=== PATIENT | female | born 1990 | race Caucasian/White ===

== ENCOUNTER → 2016-11-11 | Outpatient (CLI) | payer BC ==
[2016-11-11 13:15] LABS: CHLORIDE,CL 109 mmol/L (98-110); SODIUM,NA 142 mmol/L (136-146)
== END ==
LOC: MW.CHFP 11:27
PROVIDERS: ATTEND Student in an Organized Health Care Education/Training Program
DX: Z00.00 Encounter for general adult medical examination without abnormal findings (principal)
CPT/HCPCS: 36415; 80053; 80061; 84443; 85027

== ENCOUNTER → 2017-01-06 | Outpatient (CLI) | payer BC | LOC: MW.CHOBGYN 10:31 | PROVIDERS: ATTEND Nurse Practitioner Women's Health | DX: N93.9 Abnormal uterine and vaginal bleeding, unspecified (principal) | CPT/HCPCS: 36415; 81025; 84443; 85025 ==

== ENCOUNTER → 2017-01-07 | Outpatient (CLI) | payer BC ==
--- NOTE | 2017-01-08 10:16 | US ---
EXAMINATION: Transvaginal and transabdominal pelvic ultrasound HISTORY: Bleeding COMPARISON: None TECHNIQUE: Grayscale, spectral Doppler and color Doppler images obtained transvaginally and transabd ominally. FINDINGS: The uterus. Normal in size, contour, and echogenicity without a focal uterine mass. The en dometrial stripe thickness measures 9 mm. No significant free pelvic fluid. The right ovary is normal in size, contour, and echogenicity demonstrating normal color and spectral Doppler flow. The left ovary is not well characterized. No adnexal masses identified. IMPRESSION: 1. The left ovary is not well characterized. Otherwise grossly unremarkable pelvic ultrasound.
== END ==
LOC: MW.US 15:25
PROVIDERS: ATTEND Nurse Practitioner Women's Health
DX: N93.8 Other specified abnormal uterine and vaginal bleeding (principal)
CPT/HCPCS: 76830; 76830-26

== ENCOUNTER 2018-02-10 10:04 | Day surgery (SDC) | payer SELFPAY, BC ==
[~2018-02-10 10:04] MED LIST: Bupivacaine 0.25% 10 ML SDV ONE; Bupivacaine 0.25%/EPINEPHrine 1:200,000 10 ML SDV INJECT ONE; Lactated Ringers 1,000 ML IV SCH; Lidocaine 2% with EPINEPHrine 1:100,000 20 ML MDV ONE; Ondansetron 4 MG Tab.DIS PO PRN; Ondansetron 4 MG/2 ML SDV IVPUSH PRN; ceFAZolin 2 GM in Premix Bag 1 BAG IV ONE; diphenhydrAMINE 25 MG Cap PO PRN
[2018-02-10] MEDS ORDERED: fentaNYL 100 MCG/2 ML SDV IVPUSH PRN (10:29)
[2018-02-10] MEDS ORDERED: Scopolamine 1.5 MG Transdermal Patch TRDERM PRN (10:29)
[2018-02-10] MEDS ORDERED: Acetaminophen 1,000 MG in Premix Bag 1 BAG IV SCH (10:30)
--- NOTE | 2018-02-10 10:43 | PCM.PREANE ---
Preanesthetic Assessment - Anesthesia/Transfusion/Family Hx Anesthesia History: Prior Anesthesia Without Reaction Family History of Anesthesia Reaction: No Transfusion History: No Prior Transfusion(s) Intubation History: Unknown - Review of Systems General: No Symptoms Pulmonary: No Symptoms Cardiovascular: No Symptoms Gastrointestinal: No Symptoms Neurological: No Symptoms Other: Reports: None - Physical Assessment Height: 1.52 m Weight: 73.028 kg ASA Class: 2 Mental Status: Alert & Oriented x3 Airway Class: Mallampati = 2 Dentition: Reports: Normal Dentition Thyro-Mental Finger Breadths: 3 Mouth Opening Finger Breadths: 3 ROM/Head Extension: Full Lungs: Clear to Auscultation, Normal Respiratory Effort Cardiovascular: Regular Rate, Regular Rhythm - Lab Values: Laboratory Last Values Urine HCG, Qual NEGATIVE (NEGATIVE) 02/10/18 10:05 - Allergies Allergies/Adverse Reactions: Allergies Allergy/AdvReac Type Severity Reaction Status Date / Time No Known Allergies Allergy Verified 02/05/18 09:26 - Blood Blood Available: No - Anesthesia Plan Pre-Op Medication Ordered: None - Acknowledgements Anesthesia Type Planned: General Anesthesia Pt an Appropriate Candidate for the Planned Anesthesia: Yes Alternatives and Risks of Anesthesia Discussed w Pt/Guardian: Yes Pt/Guardian Understands and Agrees with Anesthesia Plan: Yes PreAnesthesia Questionnaire HEENT History: Reports: None Cardiovascular History: Reports: None Respiratory History: Reports: None Gastrointestinal History: Reports: None Genitourinary History: Reports: None 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: , Spontaneous Musculoskeletal History: Reports: None Neurological History: Reports: None Psychiatric History: Reports: None Endocrine/Metabolic History: Reports: Obesity/BMI 30+ Hematologic History: Reports: Anemia Immunologic History: Reports: None Oncologic (Cancer) History: Reports: None Dermatologic History: Reports: None - Infectious Disease History Infectious Disease History: Reports: Chicken Pox - Past Surgical History Head Surgeries/Procedures: Reports: None HEENT Surgical History: Reports: None Cardiovascular Surgical History: Reports: None Respiratory Surgical History: Reports: None GI Surgical History: Reports: None Female Surgical History: Reports: Section, D&C Other Female Surgeries/Procedures: c/section x3 Endocrine Surgical History: Reports: None Neurological Surgical History: Reports: None Musculoskeletal Surgical History: Reports: None Dermatological Surgical History: Reports: None - SUBSTANCE USE Smoking Status *Q: Former Smoker (quit smoking 5 years ago) Recreational Drug Use History: No - HOME MEDS Home Medications: Home Meds PNV95/Ferrous Fumarate/FA [ Tablet] 1 each PO DAILY 10/06/15 [History] - CURRENT (IN HOUSE) MEDS Current Meds: Current Medications Hydrocodone Bitart/Acetaminophen ([place] 325-5 Mg) 1 tab PO Q4H PRN PRN Reason: Pain Diphenhydramine HCl (Benadryl) 25 mg PO Q8H PRN PRN Reason: Itching Fentanyl (Sublimaze) 50 mcg IVPUSH .Q5MIN PRN PRN Reason: Pain Lactated Ringer's (Ringers, Lactated) 1,000 mls @ 125 mls/hr IV ASDIRECTED NORMA Acetaminophen 1,000 mg/ Premix 100 mls @ 400 mls/hr IV .ONETIME NORMA Ibuprofen (Motrin) 800 mg PO Q8H PRN PRN Reason: Pain Morphine Sulfate (Morphine) 2 mg IVPUSH Q2H PRN PRN Reason: Pain (severe 7-10) Ondansetron HCl (Zofran Odt) 4 mg PO Q4H PRN PRN Reason: Nausea/Vomiting Ondansetron HCl (Zofran) 4 mg IVPUSH Q4H PRN PRN Reason: Nausea Scopolamine (Transderm-Scop) 1.5 mg TRDERM .ONCE PRN PRN Reason: Post Op Nausea Discontinued Medications Bupivacaine HCl (Sensorcaine-Mpf 0.25%) Confirm Administered Dose 40 ml .ROUTE .STK-MED ONE Stop: 02/10/18 09:07 Bupivacaine HCl/Epinephrine Bitart (Marcaine 0.25%/Epinephrine 1:200,000) 10 ml INJECT ONETIME ONE Stop: 02/10/18 08:01 Cefazolin Sodium/Dextrose 2 gm (/ Premix) 50 mls @ 100 mls/hr IV ONETIME ONE Stop: 02/10/18 08:29 Lidocaine/Epinephrine (Xylocaine 2% With Epinephrine 1:100,000) Confirm Administered Dose 40 ml .ROUTE .STK-MED ONE Stop: 02/10/18 09:08
[2018-02-10] MEDS ORDERED: Rocuronium 10 MG/ML 10 ML Syringe ONE (10:44)
[2018-02-10] MEDS ORDERED: Propofol 200 MG/20 ML SDV ONE (10:44)
[2018-02-10] MEDS ORDERED: Midazolam 1 MG/ML 2 ML SDV ONE (10:44)
[2018-02-10] MEDS ORDERED: Ondansetron 4 MG/2 ML SDV ONE (10:44)
[2018-02-10] MEDS ORDERED: Lidocaine 2% 5 ML SDV ONE (10:44)
[2018-02-10] MEDS ORDERED: diphenhydrAMINE 50 MG/ML SDV ONE (10:45)
[2018-02-10] MEDS ORDERED: Dexamethasone 4 MG/ML 5 ML MDV ONE (10:45)
[2018-02-10] MEDS ORDERED: fentaNYL 250 MCG/5 ML SDV ONE (10:45)
[2018-02-10] MEDS ORDERED: ceFAZolin/Dextrose,Iso-Osmotic 2 GM/50 ML Duplex Bag IV ONE (10:45)
[2018-02-10] MEDS ORDERED: Neostigmine Methylsulfate 1 MG/ML 5 ML Syringe ONE (11:19)
[2018-02-10] MEDS ORDERED: Glycopyrrolate 0.2 MG/ML SDV ONE (11:19)
[2018-02-10] MEDS ORDERED: Octyl 2-Cyanoacrylate 1 Tube ONE (11:23)
[2018-02-10] MEDS ORDERED: HYDROmorphone 2 MG/ML SDV ONE (12:36)
[2018-02-10] MEDS ORDERED: Ketorolac 30 MG/ML SDV ONE (13:59)
--- NOTE | 2018-02-10 14:45 | PCM.POSTAN ---
POST ANESTHESIA ASSESSMENT - MENTAL STATUS Mental Status: Alert, Oriented - RESPIRATORY Respiratory Status: Respiratory Rate WNL - CARDIOVASCULAR CV Status: Pulse Rate WNL, Blood Pressure Stable - GASTROINTESTINAL GI Status: No Symptoms - PAIN Pain Score: 6 - POST OP HYDRATION Hydration Status: Adequate & Stable - OBSERVATIONS Free Text/Narrative:: no anesthesia problems
--- NOTE | 2018-02-10 15:11 | PCM.OPNOTE ---
- General Post-Op/Procedure Note Date of Surgery/Procedure: 02/10/18 Operative Procedure(s): abdominoplasty Pre Op Diagnosis: cosmetic Post-Op Diagnosis: Same Anesthesia Technique: General ET Tube, Local Primary Surgeon: Rachana Mcknight Strategic Advisor: Deborah Kirk Complications: None Condition: Good Free Text/Narrative:: Intake & Output 02/09/18 02/10/18 02/10/18 23:59 07:59 15:59 Output Total 425 Balance -425
[2018-02-10] MEDS: Morphine 2 MG/ML Syringe IVPUSH PRN ×4 (15:42→23:18)
[2018-02-10] MEDS ORDERED: Ibuprofen 800 MG Tab PO PRN (16:00)
--- NOTE | 2018-02-10 18:49 | PCM48HPAN ---
Post Anesthesia Note - EVALUATION WITHIN 48HRS OF ANESTHETIC Vital Signs in Normal Range: Yes Patient Participated in Evaluation: Yes Respiratory Function Stable: Yes Airway Patent: Yes Cardiovascular Function Stable: Yes Hydration Status Stable: Yes Pain Control Satisfactory: Yes Nausea and Vomiting Control Satisfactory: Yes Mental Status Recovered: Yes Resp Rate: 18
[2018-02-11] MEDS: Acetaminophen/HYDROcodone 325-5 MG Tab PO PRN ×2 (09:33→12:12)
[2018-02-11 09:58] VITALS: BP 112/62
--- NOTE | 2018-02-11 13:06 | PCM.PN ---
- General Info Date of Service: 02/11/18 Admission Dx/Problem (Free Text): pod 1 s/p abdominoplasty Subjective Update: doing very well today. Minimal pain and tolerating diet. Ambulating well. Functional Status: Reports: Pain Controlled - Review of Systems General: Reports: No Symptoms HEENT: Reports: No Symptoms Pulmonary: Reports: No Symptoms Cardiovascular: Reports: No Symptoms Musculoskeletal: Reports: Other (sore abdomen as expected) Skin: Reports: No Symptoms Neurological: Reports: Numbness (in lower abdominal flap as expected) Psychiatric: Reports: No Symptoms - Patient Data Vitals - Most Recent: Last Vital Signs Temp 97.7 F 02/11/18 09:57 Pulse 64 02/11/18 09:57 Resp 16 02/11/18 09:57 BP 112/62 02/11/18 09:57 Pulse Ox 98 02/11/18 09:57 Weight - Most Recent: 161 lb I&O - Last 24 Hours: Intake & Output 02/10/18 02/11/18 02/11/18 23:59 07:59 15:59 Intake Total 2240 Output Total 70 20 Balance 2170 -20 Med Orders - Current: Current Medications Hydrocodone Bitart/Acetaminophen ([place] 325-5 Mg) 1 tab PO Q4H PRN PRN Reason: Pain Last Admin: 02/11/18 12:12 Dose: 1 tab Diphenhydramine HCl (Benadryl) 25 mg PO Q8H PRN PRN Reason: Itching Fentanyl (Sublimaze) 50 mcg IVPUSH .Q5MIN PRN PRN Reason: Pain Lactated Ringer's (Ringers, Lactated) 1,000 mls @ 125 mls/hr IV ASDIRECTED NORMA Last Admin: 02/10/18 11:03 Dose: 125 mls/hr Acetaminophen 1,000 mg/ Premix 100 mls @ 400 mls/hr IV .ONETIME NORMA Last Admin: 02/10/18 11:02 Dose: 400 mls/hr Ibuprofen (Motrin) 800 mg PO Q8H PRN PRN Reason: Pain Last Admin: 02/11/18 08:12 Dose: 800 mg Morphine Sulfate (Morphine) 2 mg IVPUSH Q2H PRN PRN Reason: Pain (severe 7-10) Last Admin: 02/10/18 23:18 Dose: 2 mg Ondansetron HCl (Zofran Odt) 4 mg PO Q4H PRN PRN Reason: Nausea/Vomiting Ondansetron HCl (Zofran) 4 mg IVPUSH Q4H PRN PRN Reason: Nausea Scopolamine (Transderm-Scop) 1.5 mg TRDERM .ONCE PRN PRN Reason: Post Op Nausea Last Admin: 02/10/18 12:13 Dose: 1.5 mg Discontinued Medications Bupivacaine HCl (Sensorcaine-Mpf 0.25%) Confirm Administered Dose 40 ml .ROUTE .STK-MED ONE Stop: 02/10/18 09:07 Bupivacaine HCl/Epinephrine Bitart (Marcaine 0.25%/Epinephrine 1:200,000) 10 ml INJECT ONETIME ONE Stop: 02/10/18 08:01 Cefazolin Sodium/Dextrose (Ancef) Confirm Administered Dose 2 gm IV .STK-MED ONE Stop: 02/10/18 10:46 Dexamethasone (Dexamethasone) Confirm Administered Dose 20 mg .ROUTE .STK-MED ONE Stop: 02/10/18 10:46 Diphenhydramine HCl (Benadryl) Confirm Administered Dose 50 mg .ROUTE .STK-MED ONE Stop: 02/10/18 10:46 Fentanyl (Sublimaze) Confirm Administered Dose 250 mcg .ROUTE .STK-MED ONE Stop: 02/10/18 10:46 Glycopyrrolate (Robinul) Confirm Administered Dose 0.4 mg .ROUTE .STK-MED ONE Stop: 02/10/18 11:20 Hydromorphone HCl (Dilaudid) Confirm Administered Dose 2 mg .ROUTE .STK-MED ONE Stop: 02/10/18 12:37 Cefazolin Sodium/Dextrose 2 gm (/ Premix) 50 mls @ 100 mls/hr IV ONETIME ONE Stop: 02/10/18 08:29 Ketorolac Tromethamine (Toradol) Confirm Administered Dose 30 mg .ROUTE .STK- MED ONE Stop: 02/10/18 14:00 Lidocaine (Xylocaine-Mpf 2%) Confirm Administered Dose 5 ml .ROUTE .STK-MED ONE Stop: 02/10/18 10:45 Lidocaine/Epinephrine (Xylocaine 2% With Epinephrine 1:100,000) Confirm Administered Dose 40 ml .ROUTE .STK-MED ONE Stop: 02/10/18 09:08 Midazolam HCl (Versed 1 Mg/Ml) Confirm Administered Dose 2 mg .ROUTE .STK-MED ONE Stop: 02/10/18 10:45 Neostigmine Methylsulfate (Neostigmine) Confirm Administered Dose 5 mg .ROUTE .STK-MED ONE Stop: 02/10/18 11:20 Octyl Cyanoacrylate (Dermabond Advance) Confirm Administered Dose 1 applic .ROUTE .STK-MED ONE Stop: 02/10/18 11:24 Ondansetron HCl (Zofran) Confirm Administered Dose 4 mg .ROUTE .STK-MED ONE Stop: 02/10/18 10:45 Propofol (Diprivan 20 Ml) Confirm Administered Dose 200 mg .ROUTE .STK-MED ONE Stop: 02/10/18 10:45 Rocuronium Jackson (Zemuron) Confirm Administered Dose 100 mg .ROUTE .STK-MED ONE Stop: 02/10/18 10:45 - Exam General: Alert, Oriented, Cooperative HEENT: Pupils Reactive Lungs: Normal Respiratory Effort Extremities: Normal Range of Motion Skin: Warm, Dry Wound/Incisions: Healing Well (swelling but incisions clean and intact. Excellent for POD 1), Dressing Dry and Intact, Drainage (serosanguinous in DAYLIN's as expected. ) Psy/Mental Status: Alert, Normal Affect, Normal Mood - Problem List & Annotations (1) S/P abdominoplasty SNOMED Code(s): 727024585, [id number] Code(s): Z98.890 - OTHER SPECIFIED POSTPROCEDURAL STATES Status: Acute Priority: High Current Visit: Yes - Problem List Review Problem List Initiated/Reviewed/Updated: Yes - My Orders Last 24 Hours: My Active Orders 02/10/18 16:00 Ibuprofen [Motrin] 800 mg PO Q8H PRN 02/10/18 16:24 Drain Management [RC] ASDIRECTED 02/10/18 Dinner Regular Diet [DIET] 02/11/18 13:01 Ready for Discharge [RC] PER UNIT ROUTINE - Plan Plan:: Doing very well and will continue drain cares and antibiotics while in place. Follow up Thursday - call sooner with any issues or concerns OK to shower, otherwise binder on at all times. Crouse if needed for pain. Otherwise otc medications.
--- NOTE | 2018-02-11 13:56 | OR ---
SURGEON: STERLING KHAN MD DATE OF PROCEDURE: 02/10/2018 PREOPERATIVE DIAGNOSIS: Cosmetic. POSTOPERATIVE DIAGNOSIS: Cosmetic. PROCEDURE: Panniculectomy with umbilical plasty (abdominoplasty). FUNDS DEVELOPMENT DIRECTOR: TONY Lawrence ANESTHESIA: General ET tube with local. INDICATIONS: Ms. Vivas is a 28-year-old female seen today in evaluation for abdominoplasty. Risks and benefits of removal of the excess skin, umbilical repositioning, rectus plication and anesthesia were discussed with her thoroughly and she was in agreement to proceed. Risks were including, but not limited to, bleeding, infection, damage to underlying or overlying structures, possible need for future interventions, possible scarring. PROCEDURE IN DETAIL: After informed consent was obtained and placed on the chart, the patient was brought to the operating theater and laid in the supine position. After adequate general anesthesia, the area was prepped and draped, a time-out was completed to confirm side and site. Attention was then paid to lower border of the incision. The incision was marked here spanning here to just above the umbilicus. Dissection was first carried through the skin and subcutaneous tissues after infiltration of local anesthesia down to the rectus fascia. Dissection was then carried up to the xiphoid process taking care to isolate the umbilicus. Once adequately dissected, meticulous hemostasis was obtained and the area was copiously irrigated. Once adequately irrigated, rectus muscle plication was undertaken using an 0 Ethibond suture in a [id number] fashion at the midline. Once adequately repaired, the patient was sat up 30 degrees and the skin was redraped. A 2-0 PDS suture was used at the lateral rectus border bilaterally in order to close the space between the skin and the rectus fascia. Once these plication sutures were completed, attention was then paid to redraping of the skin and the excess skin was removed in the appropriate fashion. Once the excess skin was removed, meticulous hemostasis was again ensured and 2 size 7 DAYLIN drains were placed in the space at the lower aspect of the incision. The mons was then undermined slightly and elevated to improve contour here as well. Once this was completed, the skin was redraped and stapled in place under appropriate tension and the 2-0 PDS suture was used to close the defect at Vivienne's fascia, 2-0 PDS Stratafix suture was used to close the Vivienne's fascia, a 3-0 Monocryl Stratafix suture was used to close the dermis and a 4-0 Monocryl Stratafix suture was used to close the skin. Once this was completed, the drains were sutured in place using a 3-0 Prolene stitch in a horizontal mattress fashion at the lateral aspect of the incision. Once this was completed, the wounds were dressed with Steri-Strips. Attention was then paid to isolation of the umbilicus. This was measured 19 cm above the pubic symphysis and the incision was made. Dissection was carried through the subcutaneous tissues until locating the umbilical stalk. This was brought through in its new position and trimmed and sutured in place using a deep 4-0 Monocryl stitch and a running 4-0 subcuticular for the skin. This was dressed with Dermabond. A Tegaderm border was placed over the top. The incisions were dressed with fluffs, tapes, Xeroform for the drains. She was placed in an abdominal compression binder. She tolerated this well. All counts and needles were correct at the end of the case. FOLLOWUP INSTRUCTIONS: The patient will stay in the hospital overnight for pain control and observation. Likely discharge tomorrow as long as she is doing well. HEALEAH / JEFF /[id number]
== END 2018-02-11 13:22 | disposition home or self-care (01) ==
LOC: MW.SDS 10:04 → MW.OB 15:57 → MW.SDS 02-11 13:22
PROVIDERS: ATTEND Plastic Surgery
DX: Z41.1 Encounter for cosmetic surgery (principal); F41.9 Anxiety disorder, unspecified; F51.04 Psychophysiologic insomnia; N93.9 Abnormal uterine and vaginal bleeding, unspecified; N93.8 Other specified abnormal uterine and vaginal bleeding; E66.9 Obesity, unspecified; Z68.32 Body mass index [BMI] 32.0-32.9, adult; Z87.891 Personal history of nicotine dependence; Z98.891 History of uterine scar from previous surgery; Z79.3 Long term (current) use of hormonal contraceptives; Z79.899 Other long term (current) drug therapy
CPT/HCPCS: 15830; 15847; 81025; A9270; J0690; J1100; J1170; J1200; J1885; J2250; J2270; J2405; J3010; J7120; J2704

== ENCOUNTER 2018-05-12 02:23 | Emergency (ER) | payer BC ==
[2018-05-12] MEDS ORDERED: Sodium Chloride 0.9% 2.5 ML Syringe FLUSH PRN (02:51)
[2018-05-12] MEDS ORDERED: Sodium Chloride 0.9% 1,000 ML IV ONE (02:51)
[2018-05-12] MEDS ORDERED: Ondansetron 4 MG/2 ML SDV IVPUSH ONE (02:51)
[2018-05-12] MEDS ORDERED: Ketorolac 30 MG/ML SDV IVPUSH ONE (02:51)
[2018-05-12] MEDS ORDERED: Sodium Chloride 0.9% 10 ML Syringe FLUSH PRN (02:51)
--- NOTE | 2018-05-12 02:57 | EDM.PDOC ---
ED HPI GENERAL MEDICAL PROBLEM - General Chief Complaint: General Stated Complaint: HEAD PAIN Time Seen by Provider: 05/12/18 02:39 - History of Present Illness INITIAL COMMENTS - FREE TEXT/NARRATIVE: HISTORY AND PHYSICAL: History of present illness: The patient is a 28-year-old female with no stated pre-existing medical problems who presents with a 21 hour history of diffuse bodyaches starting at her posterior head and extending down her entire back neck to her legs and her arms as well as fevers that have been responding to [id number] meds and malaise. The patient said that the symptoms started yesterday morning at 5 AM when she was awakening to have a normal day. The day before she had had no symptoms. She does have a child at home with tonsillitis and another child who had hand foot mouth disease that has progressed to an impetigo. The patient says she has had nausea with these symptoms but only one episode of vomiting and no diarrhea. She has a history of frequent UTIs last one being about 3 weeks ago and she has had some change in her urinary habits with some dysuria but no hematuria or flank pain. He says she has not been drinking very much fluids due to the nausea and the bodyaches and because she has been sleeping so much so she has had decreased urine output. The patient denies and says she has had a bilateral tubal ligation. The patient also complains of a sore throat as well as some swollen glands in her neck but no runny nose and only an occasional dry cough. She is not short of breath and she has no discrete abdominal pain. She's been trying to hydrate but she doesn't have much desire to do so. She says her whole body feels achy and painful. Review of systems: As per history of present illness and below otherwise all systems reviewed and negative. Past medical history: As per history of present illness and as reviewed below otherwise noncontributory. Surgical history: As per history of present illness and as reviewed below otherwise noncontributory. Social history: No reported history of drug or alcohol abuse. Family history: As per history of present illness and as reviewed below otherwise noncontributory. Physical exam: General: Well-developed well-nourished female who is nontoxic and vital signs are noted by me. The patient was easily in the ED but slowly and she is not having any inhibition with that movement. HEENT: Atraumatic, normocephalic, pupils reactive, negative for conjunctival pallor or scleral icterus, mucous membranes tacky , throat clear of exudates but there is posterior oropharyngeal erythema, uvula is midline, there is diffuse anterior cervical adenopathy but no posterior adenopathy and no nuchal rigidity,, neck supple, nontender, trachea midline. Lungs: Clear to auscultation, breath sounds equal bilaterally, chest nontender. Her breathing stridor or wheezing Heart: S1S2, regular rate and rhythm no overt murmurs Abdomen: Soft, nondistended, nontender. Negative for masses or hepatosplenomegaly. Negative for costovertebral tenderness. Pelvis: Stable nontender. Genitourinary: Deferred. Rectal: Deferred. Extremities: Atraumatic, negative for cords or calf pain. Neurovascular unremarkable. No pedal edema Neuro: Awake, alert, oriented. Cranial nerves II through XII unremarkable. Cerebellum unremarkable. Motor and sensory unremarkable throughout. Exam nonfocal. Diagnostics: CBC CMP rapid strep UA urine culture blood cultures Monospot chest x-ray lactic acid influenza Therapeutics: IV fluids Toradol Zofran Rocephin viscous lidocaine Impression: Strep pharyngitis Definitive disposition and diagnosis as appropriate pending reevaluation and review of above. Whole body Pain Score (Numeric/FACES): 10 - Related Data Allergies Allergy/AdvReac Type Severity Reaction Status Date / Time No Known Allergies Allergy Verified 05/12/18 02:41 Home Meds: Home Meds . [No Known Home Meds] 05/12/18 [History] Past Medical History HEENT History: Reports: None Cardiovascular History: Reports: None Respiratory History: Reports: None Gastrointestinal History: Reports: None Genitourinary History: Reports: None [employer] History: Reports: , Spontaneous Musculoskeletal History: Reports: None Neurological History: Reports: None Psychiatric History: Reports: None Endocrine/Metabolic History: Reports: Obesity/BMI 30+ Hematologic History: Reports: Anemia Immunologic History: Reports: None Oncologic (Cancer) History: Reports: None Dermatologic History: Reports: None - Infectious Disease History Infectious Disease History: Reports: None - Past Surgical History Head Surgeries/Procedures: Reports: None HEENT Surgical History: Reports: None Cardiovascular Surgical History: Reports: None Respiratory Surgical History: Reports: None GI Surgical History: Reports: None Female Surgical History: Reports: Section, D&C Other Female Surgeries/Procedures: c/section x3 Endocrine Surgical History: Reports: None Neurological Surgical History: Reports: None Musculoskeletal Surgical History: Reports: None Dermatological Surgical History: Reports: None Social & Family History - Family History Family Medical History: Noncontributory Cardiac: Reports: Hypertension GI: Reports: Cholelithiasis : Reports: Renal Calculus OBGYN: Reports: Musculoskeletal: Reports: Arthritis, RA, Other (See Below) Other Musculoskeletal Family History: psoriatic arthritis Psychiatric: Reports: Schizophrenia, Other (See Below) Other Psychiatric Family History: personality disorder Endocrine/Metabolic: Reports: Diabetes, Type I Hematologic: Reports: Polycthemia Oncologic: Reports: Cervix, Liver - Tobacco Use Smoking Status *Q: Never Smoker - Caffeine Use Caffeine Use: Reports: Coffee, Energy Drinks, Soda, Tea - Recreational Drug Use Recreational Drug Use: No ED ROS GENERAL - Review of Systems Review Of Systems: ROS reveals no pertinent complaints other than HPI. ED EXAM, GENERAL - Physical Exam Exam: See Below (See dictation) Course - Vital Signs Last Recorded V/S: Last Vital Signs Temp 36.6 C 05/12/18 02:36 Pulse 91 05/12/18 02:36 Resp 15 05/12/18 02:36 BP 100/76 05/12/18 02:36 Pulse Ox 96 05/12/18 02:36 - Orders/Labs/Meds Orders: Active Orders 24 hr Category Date Time Status Chest 1V Frontal [CR] Stat Exams 05/12/18 02:50 Taken CULTURE BLOOD [BC] Stat Lab 05/12/18 03:00 Received CULTURE BLOOD [BC] Stat Lab 05/12/18 03:10 Received CULTURE URINE [RM] Stat Lab 05/12/18 03:15 Received Sodium Chloride 0.9% [Saline Flush] Med 05/12/18 02:51 Active 10 ml FLUSH ASDIRECTED PRN Sodium Chloride 0.9% [Saline Flush] Med 05/12/18 02:51 Active 2.5 ml FLUSH ASDIRECTED PRN cefTRIAXone [Rocephin in Dextrose,Iso-Osm 1 GM/50 ML] 1 Med 05/12/18 03:41 Ordered gm Premix Bag 1 bag IV ONETIME Blood Culture x2 Reflex Set [OM.PC] Stat Oth 05/12/18 02:50 Ordered Saline Lock Insert [OM.PC] Stat Oth 05/12/18 02:50 Ordered Medication Orders Ceftriaxone Sodium/Dextrose 1 (gm/ Premix) 50 mls @ 100 mls/hr IV ONETIME ONE Stop: 05/12/18 04:10 Last Admin: 05/12/18 03:47 Dose: 100 mls/hr Sodium Chloride (Saline Flush) 10 ml FLUSH ASDIRECTED PRN PRN Reason: Keep Vein Open Last Admin: 05/12/18 03:06 Dose: 10 ml Sodium Chloride (Saline Flush) 2.5 ml FLUSH ASDIRECTED PRN PRN Reason: Keep Vein Open Last Admin: 05/12/18 03:06 Dose: 2.5 ml Labs: Laboratory Tests 05/12/18 05/12/18 05/12/18 Range/Units 02:50 03:00 03:00 WBC 16.52 H (4.0-11.0) K/uL RBC 4.51 (4.30-5.90) M/uL Hgb 13.6 (12.0-16.0) g/dL Hct 38.6 (36.0-46.0) % MCV 85.6 (80.0-98.0) fL MCH 30.2 (27.0-32.0) pg MCHC 35.2 (31.0-37.0) g/dL RDW Std Deviation 38.5 (28.0-62.0) fl RDW Coeff of Charissa 13 (11.0-15.0) % Plt Count 197 (150-400) K/uL MPV 9.60 (7.40-12.00) fL Neut % (Auto) 88.5 H (48.0-80.0) % Lymph % (Auto) 5.1 L (16.0-40.0) % [place] % (Auto) 6.2 (0.0-15.0) % Eos % (Auto) 0.1 (0.0-7.0) % Baso % (Auto) 0.1 (0.0-1.5) % Neut # (Auto) 14.6 H (1.4-5.7) K/uL Lymph # (Auto) 0.8 (0.6-2.4) K/uL [place] # (Auto) 1.0 H (0.0-0.8) K/uL Eos # (Auto) 0.0 (0.0-0.7) K/uL Baso # (Auto) 0.0 (0.0-0.1) K/uL Lactate (0.20-2.00) mmol/L Sodium 136 (136-145) mmol/L Potassium 3.4 L (3.5-5.1) mmol/L Chloride 102 (98-107) mmol/L Carbon Dioxide 22.8 (21.0-32.0) mmol/L BUN 6 L (7.0-18.0) mg/dL Creatinine 0.8 (0.6-1.0) mg/dL Est Cr Clr Drug Dosing 79.71 mL/min Estimated GFR (MDRD) > 60.0 ml/min Glucose 118 H (74-106) mg/dL Calcium 8.7 (8.5-10.1) mg/dL Total Bilirubin 0.9 (0.2-1.0) mg/dL AST 21 (15-37) IU/L ALT 22 (14-63) IU/L Alkaline Phosphatase 68 (46-116) U/L Total Protein 8.0 (6.4-8.2) g/dL Albumin 4.1 (3.4-5.0) g/dL Globulin 3.9 H (2.0-3.5) g/dL Albumin/Globulin Ratio 1.1 L (1.3-2.8) Urine Color YELLOW Urine Appearance CLEAR Urine pH 7.0 (5.0-8.0) Ur Specific [place] 1.020 (1.001-1.035) Urine Protein NEGATIVE (NEGATIVE) mg/dL Urine Glucose (UA) NEGATIVE (NEGATIVE) mg/dL Urine Ketones NEGATIVE (NEGATIVE) mg/dL Urine Occult Blood NEGATIVE (NEGATIVE) Urine Nitrite NEGATIVE (NEGATIVE) Urine Bilirubin NEGATIVE (NEGATIVE) Urine Urobilinogen 0.2 (<2.0) EU/dL Ur Leukocyte Esterase NEGATIVE (NEGATIVE) Urine RBC 0-2 (0-2/HPF) Urine WBC 0-2 (0-5/HPF) Ur Epithelial Cells MODERATE (NONE-FEW) Urine Bacteria RARE (NEGATIVE) Monoscreen (NEG) 05/12/18 05/12/18 Range/Units 03:00 03:00 WBC (4.0-11.0) K/uL RBC (4.30-5.90) M/uL Hgb (12.0-16.0) g/dL Hct (36.0-46.0) % MCV (80.0-98.0) fL MCH (27.0-32.0) pg MCHC (31.0-37.0) g/dL RDW Std Deviation (28.0-62.0) fl RDW Coeff of Charissa (11.0-15.0) % Plt Count (150-400) K/uL MPV (7.40-12.00) fL Neut % (Auto) (48.0-80.0) % Lymph % (Auto) (16.0-40.0) % [place] % (Auto) (0.0-15.0) % Eos % (Auto) (0.0-7.0) % Baso % (Auto) (0.0-1.5) % Neut # (Auto) (1.4-5.7) K/uL Lymph # (Auto) (0.6-2.4) K/uL [place] # (Auto) (0.0-0.8) K/uL Eos # (Auto) (0.0-0.7) K/uL Baso # (Auto) (0.0-0.1) K/uL Lactate 1.0 (0.20-2.00) mmol/L Sodium (136-145) mmol/L Potassium (3.5-5.1) mmol/L Chloride (98-107) mmol/L Carbon Dioxide (21.0-32.0) mmol/L BUN (7.0-18.0) mg/dL Creatinine (0.6-1.0) mg/dL Est Cr Clr Drug Dosing mL/min Estimated GFR (MDRD) ml/min Glucose (74-106) mg/dL Calcium (8.5-10.1) mg/dL Total Bilirubin (0.2-1.0) mg/dL AST (15-37) IU/L ALT (14-63) IU/L Alkaline Phosphatase (46-116) U/L Total Protein (6.4-8.2) g/dL Albumin (3.4-5.0) g/dL Globulin (2.0-3.5) g/dL Albumin/Globulin Ratio (1.3-2.8) Urine Color Urine Appearance Urine pH (5.0-8.0) Ur Specific [place] (1.001-1.035) Urine Protein (NEGATIVE) mg/dL Urine Glucose (UA) (NEGATIVE) mg/dL Urine Ketones (NEGATIVE) mg/dL Urine Occult Blood (NEGATIVE) Urine Nitrite (NEGATIVE) Urine Bilirubin (NEGATIVE) Urine Urobilinogen (<2.0) EU/dL Ur Leukocyte Esterase (NEGATIVE) Urine RBC (0-2/HPF) Urine WBC (0-5/HPF) Ur Epithelial Cells (NONE-FEW) Urine Bacteria (NEGATIVE) Monoscreen NEGATIVE (NEG) Meds: Medications Generic Name Dose Route Start Last Admin Trade Name Freq PRN Reason Stop Dose Admin Ceftriaxone Sodium/Dextrose 1 50 mls @ 100 mls/hr 05/12/18 03:41 05/12/18 03: 47 gm/ Premix IV 05/12/18 04:10 100 mls/hr ONETIME ONE Administration Sodium Chloride 10 ml 05/12/18 02:51 05/12/18 03:06 Saline Flush FLUSH 10 ml ASDIRECTED PRN Administration Keep Vein Open Sodium Chloride 2.5 ml 05/12/18 02:51 05/12/18 03:06 Saline Flush FLUSH 2.5 ml ASDIRECTED PRN Administration Keep Vein Open Discontinued Medications Generic Name Dose Route Start Last Admin Trade Name Freq PRN Reason Stop Dose Admin Sodium Chloride 1,000 mls @ 999 mls/hr 05/12/18 02:51 05/12/18 03:05 Normal Saline IV 05/12/18 03:51 999 mls/hr STAT ONE Administration Ketorolac Tromethamine 30 mg 05/12/18 02:51 05/12/18 03:05 Toradol IVPUSH 05/12/18 02:52 30 mg ONETIME ONE Administration Lidocaine HCl 15 ml 05/12/18 03:48 Xylocaine 2% Viscous PO 05/12/18 03:49 ONETIME ONE Ondansetron HCl 4 mg 05/12/18 02:51 05/12/18 03:06 Zofran IVPUSH 05/12/18 02:52 4 mg ONETIME ONE Administration Departure - Departure Time of Disposition: 04:02 Disposition: Home, Self-Care 01 Condition: Good Clinical Impression: Strep pharyngitis - Discharge Information Referrals: PCP,None [Primary Care Provider] - Forms: ED Department Discharge Additional Instructions: The following information is given to patients seen in the emergency department who are being discharged to home. This information is to outline your options for follow-up care. We provide all patients seen in our emergency department with a follow-up referral. The need for follow-up, as well as the timing and circumstances, are variable depending upon the specifics of your emergency department visit. If you don't have a primary care physician on staff, we will provide you with a referral. We always advise you to contact your personal physician following an emergency department visit to inform them of the circumstance of the visit and for follow-up with them and/or the need for any referrals to a consulting specialist. The emergency department will also refer you to a specialist when appropriate. This referral assures that you have the opportunity for followup care with a specialist. All of these measure are taken in an effort to provide you with optimal care, which includes your followup. Under all circumstances we always encourage you to contact your private physician who remains a resource for coordinating your care. When calling for followup care, please make the office aware that this follow-up is from your recent emergency room visit. If for any reason you are refused follow-up, please contact the [facility] emergency department at and ask to speak to the emergency department charge nurse. [facility] Primary care- Internal Medicine and Family [address] [address] Push hydration and soft diet as we discussed and use Tylenol and ibuprofen/ Motrin for fevers and pain. Please start your antibiotics later this early evening and please schedule a follow-up appointment with your provider in the clinic in the next few days for reevaluation and further care. Return to ER as needed and as discussed - My Orders Last 24 Hours: My Active Orders 05/12/18 02:50 Chest 1V Frontal [CR] Stat Blood Culture x2 Reflex Set [OM.PC] Stat Saline Lock Insert [OM.PC] Stat 05/12/18 02:51 Sodium Chloride 0.9% [Saline Flush] 10 ml FLUSH ASDIRECTED PRN Sodium Chloride 0.9% [Saline Flush] 2.5 ml FLUSH ASDIRECTED PRN 05/12/18 03:00 CULTURE BLOOD [BC] Stat 05/12/18 03:10 CULTURE BLOOD [BC] Stat 05/12/18 03:15 CULTURE URINE [RM] Stat 05/12/18 03:41 cefTRIAXone [Rocephin in Dextrose,Iso-Osm 1 GM/50 ML] 1 gm Premix Bag 1 bag IV ONETIME - Assessment/Plan Last 24 Hours: My Active Orders 05/12/18 02:50 Chest 1V Frontal [CR] Stat Blood Culture x2 Reflex Set [OM.PC] Stat Saline Lock Insert [OM.PC] Stat 05/12/18 02:51 Sodium Chloride 0.9% [Saline Flush] 10 ml FLUSH ASDIRECTED PRN Sodium Chloride 0.9% [Saline Flush] 2.5 ml FLUSH ASDIRECTED PRN 05/12/18 03:00 CULTURE BLOOD [BC] Stat 05/12/18 03:10 CULTURE BLOOD [BC] Stat 05/12/18 03:15 CULTURE URINE [RM] Stat 05/12/18 03:41 cefTRIAXone [Rocephin in Dextrose,Iso-Osm 1 GM/50 ML] 1 gm Premix Bag 1 bag IV ONETIME
[2018-05-12 03:36] LABS: CHLORIDE,CL 102 mmol/L (98-107); SODIUM,NA 136 mmol/L (136-145)
[2018-05-12] MEDS ORDERED: cefTRIAXone 1 GM in Premix Bag 1 BAG IV ONE (03:41)
[2018-05-12] MEDS ORDERED: Lidocaine 2% Viscous Solution 15 ML Cup PO ONE (03:48)
[2018-05-12 04:28] VITALS: BP 123/64
--- NOTE | 2018-05-12 14:01 | CR ---
EXAM DATE: 05/12/18 PATIENT'S AGE: 28 Patient: KARUNA KNOWLES Facility: [place], [place] Site . Site : 1990 Study: XRay Chest [id number]/19/2018 3:25:31 AM Ordering Physician: Ximena Osborn Final Report: INDICATION: PAIN,SOB TECHNIQUE: Chest 1 view. COMPARISON: None. FINDINGS: Cardiovascular and mediastinum: Heart size and vasculature are normal in caliber and appearance. Mediastinum is within normal limits. Lungs and pleural space: Lungs are clear. No sign of infiltrate or mass. No sign of pleural effusion. No pneumothorax. Bones and soft tissues: No significant findings. IMPRESSION: Unremarkable chest. Dictated by: Thad Goldberg MD @ 05/12/2018 03:31:57 (Electronic Signature) Report Signed by Proxy. [facility]ITALK[facility]ia
== END 2018-05-12 04:25 | disposition home or self-care (01) ==
LOC: MW.ED 02:23
DX: J02.0 Streptococcal pharyngitis (principal)
CPT/HCPCS: 36415; 71045; 80053; 81001; 83605; 85025; 86308; 87040; 87086; 87804; 87880; 96361; 96365; 96375; 99284; A9270; J0696; J1885; J2405; J7040

== ENCOUNTER 2021-10-17 09:21 | Emergency (ER) | payer BC ==
[2021-10-17] MEDS ORDERED: Sodium Chloride 0.9% 1,000 ML IV ONE (09:37)
[2021-10-17] MEDS ORDERED: Ketorolac 30 MG/ML SDV IVPUSH ONE (09:46)
[2021-10-17] MEDS ORDERED: Ondansetron 4 MG/2 ML SDV IVPUSH ONE (09:46)
[2021-10-17 10:13] LABS: BLOOD UREA NITROGEN,BUN 7 mg/dL (7.0-18.0); CARBON DIOXIDE,CO2 25.4 mmol/L (21.0-32.0); CHLORIDE,CL 99 mmol/L (98-107); GLUCOSE RANDOM 100 mg/dL (74-106); LIPASE 33 U/L (73-393); POTASSIUM,K 4.4 mmol/L (3.5-5.1); SODIUM,NA 135 mmol/L (136-145)
[2021-10-17] MEDS ORDERED: Morphine 4 MG/ML VIAL IVPUSH ONE ×2 (10:18→12:37)
[2021-10-17] MEDS ORDERED: Iopamidol 755 MG/ML 500 ML Multipack Bottle IVPUSH STA (10:45)
[2021-10-17] MEDS ORDERED: cefTRIAXone 1 GM in Sodium Chloride 0.9% 50 ML IV ONE (11:32)
[2021-10-17 12:50] VITALS: BP 105/65; PULSE 67
== END 2021-10-17 13:45 | disposition home or self-care (01) ==
LOC: MW.ED 09:21
DX: N12 Tubulo-interstitial nephritis, not specified as acute or chronic (principal); E66.9 Obesity, unspecified; Z68.34 Body mass index [BMI] 34.0-34.9, adult
CPT/HCPCS: 36415; 74177; 80053; 81001; 81025; 83690; 85025; 87086; 87088; 87186; 96365; 96375; 96376; 99284; J0696; J1885; J2270; J2405; J7030; Q9967